=== PATIENT | male | born 1965 | race Caucasian/White ===

== ENCOUNTER → 2020-01-24 | Day surgery (SDC) | payer MEDICAID ==
[~2020-01-24] MED LIST: BUPIVACAINE HCL 0.5 % INJ/PF 30 ML SDV ONE; METHYLPREDNISOLONE ACETATE INJ 40 MG/1 ML ML ONE
--- NOTE | 2020-01-24 15:01 | RADIOLOGY REPORT (SQ) ---
EXAM DESCRIPTION: INJECT/ASPIR WRIST/ELB/ANKLE; FLUORO/NEEDLE PLACEMENT IMAGES COMPLETED DATE/TIME: 01/24/2020 2:29 pm REASON FOR STUDY: M79.672 PAIN IN LEFT FOOT M79.672 PAIN IN LEFT FOOT COMPARISON: None. FLUOROSCOPY TIME: 11 seconds 1 images saved to PACS. LIMITATIONS: None. PROCEDURE: SITE OF INJECTION: Subtalar joint LOCALIZING CONTRAST TYPE AND DOSE: 0.5 cc Omnipaque MEDICATION TYPE AND DOSE: 40 mg Depo-Medrol. Using local anesthesia and sterile technique with fluoroscopic guidance, the needle was advanced into the joint. Iodinated contrast was injected to verify intraarticular placement. This was followed by therapeutic injection of the indicated medications. The needle was removed. There were no immediat e complications. Preprocedure pain level: 4/5. Postprocedure pain level: 2/5. IMPRESSION: THERAPEUTIC INJECTION OF THE left subtalar joint JOINT ABOVE. COMMENT: Patient medication list reviewed: No. Quality ID 145: Final reports for procedures using fluoroscopy that document radiation exposure mickey georgie, or exposure time and number of fluorographic images (if radiation exposure indices are not avail able) TECHNICAL DOCUMENTATION: JOB ID: [id number] 2010 [employer]- All Rights Reserved Reading location - IP/workstation name: [email or web address]
--- NOTE | 2020-01-24 15:01 | RADIOLOGY REPORT (SQ) ---
EXAM DESCRIPTION: INJECT/ASPIR WRIST/ELB/ANKLE; FLUORO/NEEDLE PLACEMENT IMAGES COMPLETED DATE/TIME: 01/24/2020 2:29 pm REASON FOR STUDY: M79.672 PAIN IN LEFT FOOT M79.672 PAIN IN LEFT FOOT COMPARISON: None. FLUOROSCOPY TIME: 11 seconds 1 images saved to PACS. LIMITATIONS: None. PROCEDURE: SITE OF INJECTION: Subtalar joint LOCALIZING CONTRAST TYPE AND DOSE: 0.5 cc Omnipaque MEDICATION TYPE AND DOSE: 40 mg Depo-Medrol. Using local anesthesia and sterile technique with fluoroscopic guidance, the needle was advanced into the joint. Iodinated contrast was injected to verify intraarticular placement. This was followed by therapeutic injection of the indicated medications. The needle was removed. There were no immediat e complications. Preprocedure pain level: 4/5. Postprocedure pain level: 2/5. IMPRESSION: THERAPEUTIC INJECTION OF THE left subtalar joint JOINT ABOVE. COMMENT: Patient medication list reviewed: No. Quality ID 145: Final reports for procedures using fluoroscopy that document radiation exposure mickey georgie, or exposure time and number of fluorographic images (if radiation exposure indices are not avail able) TECHNICAL DOCUMENTATION: JOB ID: [id number] 2010 [employer]- All Rights Reserved Reading location - IP/workstation name: [email or web address]
== END ==
LOC: RAD 13:33
PROVIDERS: ATTEND Specialist/Technologist Athletic Trainer
DX: M79.672 Pain in left foot (principal)
CPT/HCPCS: 20605; 77002; J3490; J1030